=== PATIENT | female | born 1985 | race Caucasian/White ===

== ENCOUNTER 2018-09-20 10:00 | Day surgery (SDC) | payer OTHER ==
[~2018-09-20] VITALS: Ht 180.3 cm; Wt 89.5 kg
[~2018-09-20 10:00] MED LIST: BUPIVACAINE/PF 0.25% ONE; EPINEPHRINE 1 MG/ML, 1ML ONE; METHYLERGONOVINE 0.2 MG/ML IM ONE; MISOPROSTOL 200 MCG TABLET ONE; OXYTOCIN 10 UNITS/ML, 1ML ONE
[2018-09-20] MEDS ORDERED: LACTATED RINGERS 1,000 ML IV SCH (10:39)
[2018-09-20] MEDS ORDERED: PREN1TAB62 PO (10:42)
[2018-09-20] MEDS ORDERED: METF500T17 PO (10:42)
[2018-09-20] MEDS ORDERED: ACYC-57 PO (10:43)
[2018-09-20 10:54] VITALS: BP 131/73
[2018-09-20] MEDS ORDERED: ACETAMINOPHEN 500 MG TABLET PO ONE (11:00)
[2018-09-20] MEDS ORDERED: RHOGAM FROM BLOOD BANK 1 NOTE EA IM/IV ONE (11:00)
[2018-09-20] MEDS ORDERED: GABAPENTIN 300 MG CAPSULE PO ONE (11:00)
[2018-09-20] MEDS ORDERED: PLEASE ENTER HEIGHT AND WEIGHT MC SCH (11:00)
[2018-09-20] MEDS ORDERED: FENTANYL PF 100 MCG/2ML ONE ×2 (12:28→13:49)
[2018-09-20] MEDS ORDERED: PROPOFOL 50 ML ONE (12:28)
[2018-09-20] MEDS ORDERED: MIDAZOLAM 1 MG/ML, 2ML ONE (12:28)
[2018-09-20] MEDS ORDERED: KETOROLAC 30 MG/1 ML ONE (12:43)
[2018-09-20] MEDS ORDERED: CEFAZOLIN 1,000 MG ONE (12:43)
[2018-09-20] MEDS ORDERED: PROPOFOL 10 MG/ML, 20ML ONE ×2 (12:43)
[2018-09-20] MEDS ORDERED: DEXAMETHASONE 4 MG/ML, 1ML ONE (12:43)
[2018-09-20] MEDS ORDERED: ONDANSETRON 2MG/ML, 2ML ONE (12:43)
[2018-09-20] MEDS ORDERED: PROMETHAZINE 25 MG SUPP PR PRN (13:30)
[2018-09-20] MEDS ORDERED: MORPHINE SULFATE 4 MG/ML, 1ML IVPush PRN (13:30)
[2018-09-20] MEDS ORDERED: MIDAZOLAM 1 MG/ML, 2ML IV PRN (13:30)
[2018-09-20] MEDS ORDERED: MEPERIDINE/PF 25MG/0.5ML IVPush PRN (13:30)
[2018-09-20] MEDS ORDERED: OXYcodone 5 MG/5 ML ORAL.SOL UDC PO PRN (13:30)
[2018-09-20] MEDS ORDERED: ONDANSETRON 2MG/ML, 2ML IV PRN (13:30)
[2018-09-20] MEDS ORDERED: ONDANSETRON ODT 8 MG PO PRN (13:30)
[2018-09-20] MEDS ORDERED: ACETAMINOPHEN 325 MG TABLET PO PRN (13:30)
[2018-09-20] MEDS ORDERED: EPHEDRINE 50 MG/ML, 1ML IM PRN (13:30)
[2018-09-20] MEDS ORDERED: DIPHENHYDRAMINE 50 MG/ML, 1ML IVPush PRN (13:30)
[2018-09-20] MEDS ORDERED: PROMETHAZINE 25 MG/ML, 1ML IV PRN (13:30)
[2018-09-20] MEDS ORDERED: PROMETHAZINE 12.5 MG SUPP PR PRN (13:30)
[2018-09-20] MEDS ORDERED: OXYcodone 5 MG/5 ML ORAL.SOL UDC ONE (13:49)
[2018-09-20] MEDS ORDERED: ACETAMINOPHEN 650 MG/20.3 ML UDC ONE (13:49)
[2018-09-20] MEDS: FENTANYL PF 100 MCG/2ML IV PRN ×2 (13:53→14:10)
== END 2018-09-20 15:55 | disposition home or self-care (01) ==
LOC: OUT 10:00
PROVIDERS: ATTEND Obstetrics & Gynecology
DX: O02.1 Missed abortion (principal); Z88.0 Allergy status to penicillin; Z98.890 Other specified postprocedural states
CPT/HCPCS: 36415; 59820; 86850; 86900; 88305; J0171; J0690; J1100; J1885; J2210; J2250; J2405; J2704; J2790; J3010; J3490; J7120; J2590

== ENCOUNTER 2019-10-03 18:32 | Emergency (ER) | payer OTHER ==
[~2019-10-03] VITALS: Ht 180.3 cm; Wt 93.0 kg
[~2019-10-03 18:32] MED LIST changes: +ACYC-57 PO; -BUPIVACAINE/PF 0.25% ONE; -EPINEPHRINE 1 MG/ML, 1ML ONE; +METF500T17 PO; -METHYLERGONOVINE 0.2 MG/ML IM ONE; -MISOPROSTOL 200 MCG TABLET ONE; -OXYTOCIN 10 UNITS/ML, 1ML ONE; +PREN1TAB62 PO
--- NOTE | 2019-10-03 19:58 | NUR ---
PT C/O STERNAL CP FOR A FEW DAYS, TODAY IT IS RADIATING ACROSS CHEST. PT CONNECTED TO MONITORING. CALL LIGHT IN REACH. LAB AT BEDSIDE.
[2019-10-03 20:01] VITALS: BP 150/98
[2019-10-03 20:15] LABS: BASOPHILS # (AUTO) 0.03 x10^3/uL (0-0.1); BASOPHILS % (AUTO) 0 % (0-1); EOSINOPHILS # (AUTO) 0.07 x10^3/uL (0-0.4); EOSINOPHILS % (AUTO) 1 % (1-7); LYMPHOCYTES # (AUTO) 1.82 x10^3/uL (1-3.4); LYMPHOCYTES % (AUTO) 16 % (22-44); MD NO; MEAN CORPUSCULAR HEMOGLOBIN 32.5 pg (27.0-34.8); MEAN CORPUSCULAR HGB CONC 34.2 g/dL (32.4-35.8); MEAN PLATELET VOLUME 8.4 fL (7.4-10.4); MONOCYTES # (AUTO) 0.52 x10^3/uL (0.2-0.8); MONOCYTES % (AUTO) 5 % (2-9); NEUTROPHILS # (AUTO) 8.78 x10^3/uL (1.8-6.8); NEUTROPHILS % (AUTO) 78 % (42-75); PLATELET COUNT 232 x10^3/uL (130-400); RED BLOOD COUNT 4.55 x10^6/uL (3.82-5.3)
[2019-10-03 20:18] LABS: ALANINE AMINOTRANSFERASE 32 U/L (12-78); ANION GAP 8 mmol/L (5-15); CALCIUM 8.5 mg/dL (8.5-10.1); CHLORIDE 107 mmol/L (98-107); CREATININE 0.93 mg/dL (0.55-1.02)
[2019-10-03 20:22] LABS: ALKALINE PHOSPHATASE 74 U/L (45-117); BILIRUBIN,TOTAL 0.3 mg/dL (0.2-1.0); TOTAL PROTEIN 7.8 g/dL (6.4-8.2); TROPONIN I < 0.015 ng/mL (0.000-0.045)
[2019-10-03] MEDS ORDERED: KETOROLAC 30 MG/1 ML ONE (21:29)
[2019-10-03] MEDS ORDERED: KETOROLAC 30 MG/1 ML IM ONE (21:30)
== END 2019-10-03 21:42 | disposition home or self-care (01) ==
LOC: ED 21:15
DX: R07.89 Other chest pain (principal); R00.0 Tachycardia, unspecified
CPT/HCPCS: 36415; 71045; 80053; 84443; 84484; 84703; 85025; 85379; 93005; 96372; 99285; J1885

== ENCOUNTER 2020-02-18 15:05 | Emergency (ER) | payer BC, OTHER ==
[~2020-02-18] VITALS: Ht 180.3 cm; Wt 93.8 kg
[2020-02-18 15:08] VITALS: BP 160/99
--- NOTE | 2020-02-18 15:43 | NUR ---
PT CAME IN CO OF CHEST PRESSURE THAT CAME ON ALL OF A SUDDEN AT 1445. 7/10 PAIN AT THE TIME. CURRENTLY PT RATES PAIN AT 2/10. vss ecg in triage Report increases social stressors lately
== END 2020-02-18 16:47 | disposition home or self-care (01) ==
LOC: ED 16:00
DX: R07.89 Other chest pain (principal); R00.0 Tachycardia, unspecified; R00.2 Palpitations; R11.0 Nausea; F41.9 Anxiety disorder, unspecified; K21.9 Gastro-esophageal reflux disease without esophagitis
CPT/HCPCS: 93005; 99283